=== PATIENT | female | born 1960 | race Caucasian/White ===

== ENCOUNTER 2018-07-04 10:11 | Emergency (ER) | payer BC ==
[~2018-07-04] VITALS: Ht 160 cm; Wt 57.6 kg
[~2018-07-04 10:11] MED LIST: FLEXERIL PO; IBUPROFEN 800800 M1 PO; TYLENOL325 MG PO
[2018-07-04 10:15] VITALS: BP 115/62
[2018-07-04] MEDS ORDERED: XANAX1 MG PO (10:19)
[2018-07-04] MEDS ORDERED: AMOXICILLIN 50500 MG PO (10:36)
[2018-07-04] MEDS ORDERED: ACETAMINOPHEN-1 EAC1 PO (10:36)
[2018-07-04] MEDS ORDERED: LIDOCAINE VISC100 ML SWISH&SPIT (10:36)
== END 2018-07-04 10:45 | disposition home or self-care (01) ==
LOC: M.ERS 10:11
DX: K08.89 Other specified disorders of teeth and supporting structures (principal); F41.9 Anxiety disorder, unspecified; F17.200 Nicotine dependence, unspecified, uncomplicated; Z85.858 Personal history of malignant neoplasm of other endocrine glands